=== PATIENT | male | born 1970 | race Caucasian/White ===

== ENCOUNTER 2023-12-14 13:46 | Outpatient (CLI) | payer MEDICAID ==
[2023-12-14] MEDS ORDERED: GADOTERATE MEGLUMINE 7.5 MMOL/15 ML VIAL IV ONE (17:53)
== END 2023-12-14 23:59 | disposition home or self-care (01) ==
LOC: MRI 13:46
PROVIDERS: ATTEND Nurse Practitioner Family
DX: M50.33 Other cervical disc degeneration, cervicothoracic region (principal); R90.82 White matter disease, unspecified; G35 Multiple sclerosis
CPT/HCPCS: 70553; 72156; A9575

== ENCOUNTER 2023-12-18 12:25 | Outpatient (CLI) | payer MEDICAID ==
[2023-12-18] MEDS ORDERED: GADOTERATE MEGLUMINE 7.5 MMOL/15 ML VIAL IV ONE (16:15)
== END 2023-12-18 23:59 | disposition home or self-care (01) ==
LOC: MRI 12:25
PROVIDERS: ATTEND Nurse Practitioner Family
DX: G35 Multiple sclerosis (principal)
CPT/HCPCS: 72157; A9575